=== PATIENT | male | born 1955 | race Caucasian/White ===

== ENCOUNTER 2020-07-01 19:44 | Emergency (ER) | payer MEDICARE, OTHER ==
[~2020-07-01] VITALS: Ht 170.2 cm; Wt 72.6 kg
[2020-07-01 20:56] LABS: BASOPHILS # (AUTO) 0.3 K/uL (0.0-8.0); EOSINOPHILS % (AUTO) 0.4 % (0.0-7.0); LYMPHOCYTES # (AUTO) 0.9 K/uL (20.0-40.0); LYMPHOCYTES % (AUTO) 15.1 % (20.5-51.5); MEAN CORPUSCULAR HEMOGLOBIN 33.6 uug (23.8-33.4); MEAN CORPUSCULAR HGB CONC 34 g/dL (32.5-36.3); MEAN CORPUSCULAR VOLUME 98.1 fL (73.0-96.2); MONOCYTES # (AUTO) 1.1 K/uL (2.0-10.0); MONOCYTES % (AUTO) 18.7 % (0.0-11.0); NEUTROPHILS # (AUTO) 3.6 K/uL (1.8-8.9); NEUTROPHILS % (AUTO) 60.7 % (38.5-71.5); PLATELET COUNT (AUTO) 162 K/uL (152-348); RED BLOOD CELL COUNT(AUTO) 3.87 MIL/uL (4.06-5.63); WHITE BLOOD COUNT (AUTO) 5.9 K/uL (3.6-10.2)
[2020-07-01 21:00] LABS: POTASSIUM 4.6 mmol/L (3.5-5.1)
[2020-07-01 21:06] LABS: BILIRUBIN,DIRECT 0.1 mg/dL (0.0-0.2); BILIRUBIN,TOTAL 0.2 mg/dL (0.2-1.0); TOTAL PROTEIN, SERUM 7.1 g/dL (6.4-8.2)
--- NOTE | 2020-07-01 22:00 | NUR ---
Sandra the senior payroll administrator of facility called for update. She stated that if patient will be cleared to go back to facility to call Patricia oh nurse @ [phone]
--- NOTE | 2020-07-01 22:00 | NUR ---
Sandra's contact number is [phone]
[2020-07-01 23:13] LABS: LYMPHOCYTES % (MANUAL) 26 % (20-40); MONOCYTES % (MANUAL) 23 % (2-10); NEUTROPHILS % (MANUAL) 48 % (42-75)
--- NOTE | 2020-07-02 00:41 | NUR ---
Patient cleared to be discharged home per MD [place]. Report given to Patricia @ [facility].
--- NOTE | 2020-07-02 02:01 | NUR ---
Patient transported back to facility, transport arrangements made by JAROD Nugent. [facility] unit number [id number].
[2020-07-02 02:02] VITALS: BP 128/77
== END 2020-07-02 02:03 ==
LOC: ER 19:44
DX: U07.1 COVID-19 (principal); J98.11 Atelectasis; Z74.01 Bed confinement status; R47.01 Aphasia; F79 Unspecified intellectual disabilities; G24.01 Drug induced subacute dyskinesia
CPT/HCPCS: 36415; 70030-TC; 71045; 83605; 83690; 85025; 85730; 93005; A4663; U0003